=== PATIENT | female | born 2005 | race Caucasian/White ===

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

== ENCOUNTER 2024-12-27 15:54 | Emergency (ER) | payer OTHER, SELFPAY ==
--- NOTE | 2024-12-27 15:56 | ED_ITS ---
HPI - URI/Sore Throat General Chief Complaint: Urogenital-Female Stated Complaint: Sore Throat Time Seen by Provider: 12/27/24 16:28 Source: patient and RN notes reviewed Mode of arrival: ambulatory Limitations: no limitations History of Present Illness HPI Narrative: 19-year-old female presents with multiple complaints. She reports she has had a backache which she can get when she has urinary tract infection. She denies frequency, urgency, nausea, vomiting, body aches, chills, sweats. A separate complaints she reports feeling of her right tonsil being slightly swollen. She denies sore throat, runny nose, stuffy nose, cough. She reports she gets tonsil stones and she is curious if she has a tonsil stone. MD elicited complaint: sore throat Related Data Home Medications ?Medication ?Instructions ?Recorded ?Confirmed ?Last Taken ?Type levonorgestrel-ethinyl estradiol 1 tablet PO DAILY 09/23/20 06/26/21 Unknown History 0.1 mg-20 mcg tablet (Larissia) Allergies Allergy/AdvReac Type Severity Reaction Status Date / Time sulfamethoxazole (From Allergy Unknown Unknown Verified 12/27/24 16:10 Bactrim) trimethoprim (From Bactrim) Allergy Unknown Unknown Verified 12/27/24 16:10 Review of Systems Review of Systems: CONSTITUTIONAL: Denies malaise, chills, sweats, or fever. EYES: Denies visual changes, redness, or discharge. ENT: Denies rhinorrhea, congestion, sinus pain, otalgia and sore throat. Reports swollen right tonsil CARDIOVASCULAR: Denies chest pain, palpitations, or edema. RESPIRATORY: Denies cough. Denies dyspnea. GASTROINTESTINAL: Denies abdominal pain, nausea, vomiting, diarrhea SKIN: Denies rash or itching. MUSCULOSKELETAL: Denies myalgia. Reports low back ache NEUROLOGIC: Denies headache. All systems reviewed & are unremarkable except as noted in HPI and below PMFSH Past Medical History Medical History (Updated 12/27/24 @ 16:38 by Erendira Eng NP) COVID-19 Obese Female reproductive system disorder Cyst removed from fallopian tube Exercise-induced asthma Surgical History Surgical History (Updated 09/23/20 @ 20:20 by QUAN Lindquist) History of salpingectomy LT History of orthopedic surgery Bilateral hips pain Family History Family History (Updated 09/23/20 @ 20:20 by QUAN Lindquist) Father Alive and well Mother Obese Social History Social History (Updated 09/23/20 @ 20:22 by QUAN Lindquist) Smoking status: Never smoker Tobacco type: cigarettes Second hand tobacco smoke exposure: No Alcohol intake: never Substance use: never Living arrangements: with family Occupation/Education: occupation Additional occupation/education comments: and 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 There is no relevant family history pertinent to the presenting complaint Exam Narrative: GENERAL: Well-appearing, well-nourished, and in no acute distress. HEAD: Normocephalic EYES: PERRLA, conjunctivae clear ENT: Nares clear. Mucous membranes moist. TM pearly javier with dull light reflex bilaterally; no tragal tenderness. Oropharynx not erythematous without lesions. Right tonsil Tonsil mildly enlarged without erythema or exudate; tonsil stone visible, left not enlarged and without exudate, no drooling, no hoarseness, no trismus, uvula midline. NECK: Supple. No lymphadenopathy CHEST: Clear to auscultation, breath sounds equal. No wheezing, rhonchi, rales, or stridor. No respiratory distress, speaks in full sentences. HEART: Regular rate and rhythm. No murmur heard. SKIN: Warm, dry, no rash. NEURO: Alert and oriented x3. PSYCH: Normal mood and affect Course Course Emergency Course: Patient is aware of diagnosis, understands and agrees to treatment plan. Anticipatory guidance given. Patient agrees to follow-up as directed and is aware of reasons to seek care at the emergency department. Portions of this record may have been created with voice recognition software Level of Care: Express Care Visit Vital Signs Vital signs: Reviewed. MDM - URI/Sore Throat MDM Narrative Medical decision making narrative: Differential diagnosis considered: Ogden virus, strep pharyngitis, allergic rhinitis, upper respiratory tract infection, sinusitis, rhinosinusitis, nasopharyngitis. viral pharyngitis, otitis media, otitis externa, pneumonia, bronchitis, viral cough syndrome, viral syndrome, and influenza. Exam findings show no acute concerns or changes; patient is non-toxic appearing and is in no distress. Patient is appropriate for outpatient treatment and follow-up. Lab Data Attestation: I reviewed the patient's lab results. Critical Care Time Critical Care Time Critical Care Time: No Discharge Plan Discharge Clinical Impression: Low back ache, Tonsil stone Patient Disposition: Home Condition: Stable Instructions: General Patient Instructions Additional Instructions: We will send a urine culture to the lab; if the culture identifies an organism that requires antibiotic, you will receive a phone call from an urgent care staff member and an appropriate antibiotic will be prescribed. You can try Zyrtec D to see if it helps with the slight swelling in her tonsils. Salt water gargles may also help dislodge tonsil stones -Also recommend: increase water intake. Tylenol/ibuprofen as needed for pain or fever -Follow-up with your primary care provider for urine recheck or seek ER visit if condition worsens with high fever, nausea, vomiting and severe back pain. Patient Language: Belarusian Prescriptions: No Action levonorgestrel-ethinyl estrad [Larissia] 0.1-20 mg-mcg tablet 1 tablet PO DAILY Follow-up/Referrals: UNKNOWN,DOCTOR [Non-Staff] - Time of Disposition: 16:38
--- OUTSIDE RECORDS SUMMARY | 2024-12-27 15:56 | XMS_ITS | Encounter Summary ---
Author Organization [facility] Address [address] [place] [address] Phone Care Team Providers Care Adult School Teacher Name Role Phone Cheryle Clark CHILD DEVELOPMENT ASSOCIATE TEACHER, SOLID WASTE DISPOSAL MANAGER Primary Care Provider Tana Cardenas APRN, SOLID WASTE DISPOSAL MANAGER Primary Care Provid er Emily Greene APRN, OPTHALMIC TECH Unavailable [phone] Reason for Visit * Reason Comments Medication Refill Encounter Details Date Type Department Care Team (Late st Contact Info) Description 01/07/2022 Refill [facility] - Neurology - [place] [address] [place] [address] Emily Greene, JENNIE, OPTHALMIC TECH [address] [place] [address] Medication Refill Social History Tobacco Use Types Packs/Day Years Used Date Smoking Tobacco: Never Smokeless Tobacco: Never Alcohol Use Standard Drinks/Week Comments Never 0 (1 standard drink = 0.6 oz pur e alcohol) AUDIT-C Answer Date Recorded Q1: How often do you have a drink containing alc ohol? 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 Gender Identity Not on file Sexual Orientation Not on file documented as of this encounter Plan of Treatment Not on file documented as of this encounter Visit Diagnoses Diagnosis Chronic migraine w/o aura w/o status migrainosus, not intractable Chronic migraine without aura, without mention of intractable migraine without mention of status migrainosus documented in this encounter Additional Health Concerns Assessment Noted Time PHQ-9 Depression Total Score: 0 09/28/19 21 10:00 AM CDT documented as of this encounter Care Teams Adult School Teacher Relationship Specialty Start Date End Date Cheryle Clark, CHILD DEVELOPMENT ASSOCIATE TEACHER, SOLID WASTE DISPOSAL MANAGER [address] [place] [address] PCP - General Advanced Practice Nurse 03/14/20 Tana Cardenas APRN, SOLID WASTE DISPOSAL MANAGER [address] [address] PCP - General Advanced Practice Nurse 09/22/22 Emily Greene APRN, OPTHALMIC TECH [address] [place] [address] Nurse Practitioner Advanced Practice Nurse 05/14/22 documented as of this encounter
--- OUTSIDE RECORDS SUMMARY | 2024-12-27 15:56 | XMS_ITS | Encounter Summary ---
Author Organization [facility] Address [address] [place] [address] Phone Care Team Providers Care Repair Servicer Name Role Phone Tana Cardenas APRN, TOOL STRAIGHTENER Primary Care Provid er Emily Greene APRN, HI RANGER OPERATOR Unavailable [phone] Reason for Visit * Reason Comments Medication Refill Encounter Details Date Type Department Care Team (Late st Contact Info) Description 11/05/2022 Refill [facility] - Neurology - [place] [address] [place] [address] Emily Greene APRN, HI RANGER OPERATOR [address] [place] [address] Medication Refill Social History Tobacco Use Types [...] Total Score - Questions 1-9 0 09/07 Sexually Active Control Partners Comments Yes Male Condom Male Comments No Sex and Gender Information Value Date Recorded Sex Assigned at Not on file Legal 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 Requested Prescriptions Pending Prescriptions Disp Refills Aimovig 140 MG/ML Solution Auto-injector [Pharmacy Med Name: AIMOVIG SURECLICK 140MG/ML INJ ROBINSON] 1 mL 3 Sig: INJECT 1 MG UNDER SKIN EVERY MONTH Not Delegated - Off Protocol Failed - 11/05/2022 2:55 PM Failed - This refill cannot be delegated Passed - Visit with relevant provider in past 12 months or upcoming 90 days Recent Visits Date Type Provider Dept 09/22/22 Office Visit Tana Cardenas APRN, [facility] 05/14/22 Office Visit Emily Greene APRN, CRISTIN [facility] Neurology [facility] Showing recent visits within past 365 days and meeting all other requirements Future Appointments No visits were found meeting these conditions. Showing future appointments within next 90 days and meeting all other requirements documented in this encounter Plan of Treatment Not on file documented as of this encounter Visit Diagnoses Not on filedocumented in this encounter Additional Health Concerns Assessment Noted Time PHQ-9 Depression Total Score: 0 09/28/19 21 10:00 AM CDT documented as of this encounter Care Teams Repair Servicer Relationship Specialty Start Date End Date Tana Cardenas APRN, TOOL STRAIGHTENER [address] [id number] PCP - General Advanced Practice Nurse 09/22/22 Emily Greene APRN, HI RANGER OPERATOR [address] [place] [address] Nurse Practitioner Advanced Practice Nurse 05/14/22 documented as of this encounter
--- OUTSIDE RECORDS SUMMARY | 2024-12-27 15:56 | XMS_ITS | Encounter Summary ---
Author Organization [facility] Address [address] [place] [address] Phone Care Team Providers Care Supervisor Grain And Yeast Plants Name Role Phone Cheryle Clark MARKET MANAGER, FINAL CIGAR AND BOX EXAMINER Primary Care Provider Tana Cardenas APRN, FINAL CIGAR AND BOX EXAMINER Primary Care Provid er Emily Greene APRN, ANIMAL PHYSIOLOGY TEACHER Unavailable [phone]- [phone] Reason for Visit * Reason Comments Medication Refill Encounter Details Date Type Department Care Team (Late st Contact Info) Description 07/09/2022 Refill [facility] - Neurology - [place] [address] [place] [address] Emily Greene, JENNIE, ANIMAL PHYSIOLOGY TEACHER [address] [place] [address] Medication Refill Social History Tobacco Use Types [...] on file Legal Sex Female 4:52 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 Gender Identity Not on file Sexual Orientation Not on file documented as of this encounter Plan of Treatment Not on file documented as of this encounter Visit Diagnoses Not on filedocumented in this encounter Additional Health Concerns Assessment Noted Time PHQ-9 Depression Total Score: 0 09/28/19 21 10:00 AM CDT documented as of this encounter Care Teams Supervisor Grain And Yeast Plants Relationship Specialty Start Date End Date Cheryle Clark APRN, FINAL CIGAR AND BOX EXAMINER [address] [place] [address] PCP - General Advanced Practice Nurse 03/14/20 Tana Cardenas, JENNIE, FINAL CIGAR AND BOX EXAMINER [address] [phone] PCP - General Advanced Practice Nurse 09/22/22 Emily Greene APRN, ANIMAL PHYSIOLOGY TEACHER [address] [place] [address] Nurse Practitioner Advanced Practice Nurse 05/14/22 documented as of this encounter
--- OUTSIDE RECORDS SUMMARY | 2024-12-27 15:56 | XMS_ITS | Referral Summary ---
Author Organization [facility] Address [address] [place] [address] Care Team Providers Care Python Developer Name Role Phone Elana Schafer MD Primary Care Provid er Allergies No known active allergies Medications albuterol HFA (PROVENTIL HFA,VENTOLIN HFA) 90 mcg/actuation inhaler inhale 2 by Inhalation route every 3 - 6 hours prn 1 Inhaler 0 3 Active Additional Information Patient not taking.Reported on 12/21/2017 omeprazole (PriLOSEC) 20 mg capsuleIndicatio ns:Treatment of Non-Bleeding Gastric Disorder Take 1 capsule (20 mg total) by mouth 2 (two) times a day. 60 capsule 1 9 Active Additional Information Patient not taking.Reported on 04/19/2019 fluticasone propionate (FLONASE) 50 mcg/actuation nasal spray INSTILL 1 SPRAY NASALLY EACH DAY 0 9 Active methylPREDNISolo ne (MEDROL DOSEPACK) 4 mg Dosepack TAKE 6 TABLETS ON DAY 1 DIRECTED ON PACKAGE AND DECREASE BY 1 TAB EACH DAY FOR A TOTAL OF 6 DAYS 0 9 Active cephalexin (KEFLEX) 500 mg capsule Take po bid 60 capsule 9 Active Additional Information Patient not taking.Reported on 04/19/2019 clindamycin (CLEOCIN T) 1 % lotion Apply topically to face, chest, back qd 120 mL 3 9 Active Additional Information Patient not taking.Reported on 04/19/2019 ISOtretinoin (ABSORCA) 40 mg capsule Take 1 capsule (40 mg total) by mouth daily 30 capsule 9 Active almotriptan (AXERT) 6.25 mg tablet 9 Active ISOtretinoin (Claravis) 30 mg capsuleIndicatio ns:History of isotretinoin therapy,Acne vulgaris Take 2 tablets (60 mg) po every day 60 capsule 0 Active Active Problems Problem Noted Date Diagnosed Date Acne 04/18/2014 Pelvic mass 08/11/2013 Arthralgia of hip 03/03/2013 Pain in extremity 11/24/2011 Slipped proximal femoral epiphysis of hip 2011 Ventricular septal defect 04/06/2009 Immunizations Immunization Administration Dates Next Due DTaP 5 Pertussis 01/13/2008, 4,2003,2003, 2003 Hep B / HiB 2003 Hep B, Adolescent or Pediatric 2003,2002 Hib (HbOC) 04/26/2004,2003,2003 IPV 01/13/2008,04/26/2004,2003 ,2003 MMR 01/13/2008,01/26/2004 Pneumococcal Conjugate 7-Valent 04/26/2004,07/26,2003,2003 Tdap 03/22/2013 Varicella 01/13/2008,01/26/2004 Social History Tobacco Use Types Packs/Day Years Used Date Smoking Tobacco: Never Smokeless Tobacco: Never Comments Unknown Sex and Gender Information Value Date Recorded Sex Assigned at Not on file Legal Sex Female 11:48 PM C 13 CATAPULT OPERATOR Gender Identity Not on file Sexual Orientation Not on file Last Filed Vital Signs Vital Sign Reading Time Taken Comments Blood Pressure 135/84 06/02/2018 1:40 PM C 13 CATAPULT OPERATOR Pulse 119 06/02/2018 1:40 PM C 13 CATAPULT OPERATOR Temperature 36.5 C (97.7 F) 06/02/2018 1:40 PM C 13 CATAPULT OPERATOR Respiratory Rate 20 06/02/2018 1:40 PM C 13 CATAPULT OPERATOR Oxygen Saturation 97% 06/02/2018 1:40 PM C 13 CATAPULT OPERATOR Inhaled Oxygen Concentration - - Weight 123 kg (271 lb 2.7 oz) 06/02/2018 1:40 PM C 13 CATAPULT OPERATOR Height 169.6 cm (5' 6.77) 12/21/2017 3:06 PM CD T Body Mass Index - - Plan of Treatment Not on file Insurance [employer] Address: [facility] [id number] [place] [address] [employer] [place] [facility] CHOICE PLUS [facility] HMO/PPO Address: [address] [address] [place] [address] [place] [facility] CHOICE PLUS [facility] HMO/PPO Address: [address] [address] [place] [address] Care Teams Python Developer Relationship Specialty Start Date End Date Elana Schafer MD [address] [address] PCP - General Pediatrics 04/05/19
--- OUTSIDE RECORDS SUMMARY | 2024-12-27 15:56 | XMS_ITS | Clinical Summary ---
Author Organization [facility] Address [address] [place] [address] Phone Care Team Providers Care Coil Builder Name Role Phone Tana Cardenas APRN, WIRE STRIPPING 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 Primary Care Provid er Emily Greene APRN, PURIFICATION SUPERVISOR Unavailable [phone]- [phone] Allergies No known active allergies Medications Syringe/Needle, Disp, (SYRINGE 3CC/25GX1) 25G X 1 3 ML Misc 1 Syringe by Does not apply route once a week. 4 Each 1 Active famotidine (PEPCID) 20 MG Tablet Take 20 mg by mouth 2 times daily. Active Cyanocobalamin (B-12) 1000 MCG Capsule Take 1 Capsule by mouth Every other day. 60 Capsule 2 2 Active Larissia 0.1-20 MG-MCG TabletIndication s:Heavy Menstrual Bleeding Take 1 Tablet by mouth daily. Indications: Excessive Amount of Menstrual Volume 28 Tablet 3 3 Active Rizatriptan Benzoate 5 MG TABLET DISPERSIBLE Take 1 Tablet by mouth once as needed for Migraine. 9 Tablet 3 3 Active Aimovig 140 MG/ML Solution Auto-injector INJECT 1 MG UNDER SKIN EVERY MONTH 1 mL 3 3 Active ondansetron (ZOFRAN-ODT) 4 MG TABLET DISPERSIBLEIndic ations:Chronic migraine w/o aura w/o status migrainosus, not intractable Take 1 Tablet by mouth every 8 hours as needed for Nausea - 1st line. 15 Tablet 2 3 Active Active Problems Problem Noted Date Diagnosed Date Menorrhagia with irregular cycle 09/22/2022 Acne 04/18/2014 Arthralgia of hip 03/03/2013 Slipped proximal femoral epiphysis of hip 2011 Ventricular septal defect 04/06/2009 Immunizations Immunization Administration Dates Next Due Covid-19, Mrna, Lnp-s, Pf, 3 0 Mcg/0.3 Ml Dose ([facility]) 02/08/2021 DTAP VACCINE 01/13/2008 DTAP VACCINE, UNSPECIFIED FORMULATION 2003 DTAP/HEPB/IPV Vaccine 2003 DTAP/HIB/IPV COMBINED VACCINE 04/26/2004, 003,2003 Hepatitis A Vaccine, Pediatric/adolescent, 2 Dose Schedule 12/22/2016,12/17/2015 Hepatitis B Vaccine, Pediatric/adolescent 2003,2003 Hepatitis B Vaccine,unspecif ied Formulation 2003 Hib (HbOC) 04/26/2004,2003,2003 Hib Vaccine,unspecified Formulation 2003 Inactivated Polio Vaccine 01/13/2008 Influenza, Injectable, Quadrivalent 04/23/2015 MMR Vaccine 01/13/2008,01/26/2004 Meningococcal MCV4O 12/17/2015 Meningococcal Vaccine 02/15/2020 Pneumococcal PCV, Unspecifie d Formulation 2003 Pneumococcal Vaccine - 13 Valent 004,2003,2003,03/27 TDAP Vaccine 03/22/2013 Varicella Vaccine Live 01/13/2008,01/26/2004 Family History Medical History Relation Name Comments Hypertension Maternal Grandmother Other-comment Maternal Grandmother Dermat omyositis Migraines Mother Relation Name Status Comments Father Maternal Grandmother Mother Alive Social History Tobacco Use Types Packs/Day Years Used Date Smoking Tobacco: Never Smokeless Tobacco: Never Tobacco Cessation:Counseling Given: Yes Alcohol Use Standard Drinks/Week Comments Never 0 [...] on file Legal Sex Female 4:52 PM QUALITY CONTROL 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 Gender Identity Not on file Sexual Orientation Not on file Last Filed Vital Signs Vital Sign Reading Time Taken Comments Blood Pressure 124/76 09/22/2022 8:35 AM CDT Pulse 71 09/22/2022 8:35 AM CDT Temperature 36.9 C (98.5 F) 09/22/2022 8:35 AM CDT Respiratory Rate 14 09/22/2022 8:35 AM CDT Oxygen Saturation 98% 09/22/2022 8:35 AM CDT Inhaled Oxygen Concentration - - Weight 118.8 kg (261 lb 14.4 oz) 09/22/2022 8:35 AM CDT Height 170.2 cm (5' 7) 09/22/2022 8:35 AM CDT Body Mass Index 41.02 09/22/2022 8:35 AM CDT Plan of Treatment Health Maintenance Due Date Last Done Comments Hepatitis C Virus (HCV) Screening 2003 Human Papillomavirus (HPV) Immunization (1 - 3-dose series) 2018 Meningococcal B Immunization (1 of 2 - Standard) 2019 DTaP/Tdap/Td Immunization (7 - Td or Tdap) 03/22/2023 03/22/2013, 01/13/2008, 04/26/2004, Additional history exists Pap Smear 01/24/2024 SARS-COV-2 Immunization ( - season) 2024 03/01/2021, 02/08/2021 Influenza Immunization (#1) 2025 04/23/2015 Respiratory Syncytial Virus (RSV) Immunization (Adult) (1 - 1-dose 75+ series) 2078 Hepatitis B Immunization Completed 004, 2003, 2003, Additional history exists Pneumococcal Immunization Combined Completed 04/26/2004, 2003, 2003, Additional history exists Measles Mumps Rubella (MMR) Immunization Discontinued 01/13/2008, 01/26/2004 Polio (IPV) Immunization Discontinued 008, 04/26/2004, 2003, Additional history exists Varicella Immunization Discontinued 01/13/2008, 2003 Hepatitis A Immunization Discontinued 12/22/2016, 12/06 Meningococcal Immunization (ACWY) Completed 02/15/2020, 12/17/2015 Rotavirus Immunization Aged Out No lo nger eligible based on patient's age to complete this topic Insurance [facility] [employer] Care Teams Coil Builder Relationship Specialty Start Date End Date Tana Cardenas APRN, WIRE STRIPPING 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 [address] [phone] PCP - General Advanced Practice Nurse 09/22/22 Emily Greene, REHAB TECHNICIAN, PURIFICATION SUPERVISOR [address] [place] [address] Nurse Practitioner Advanced Practice Nurse 05/14/22
--- OUTSIDE RECORDS SUMMARY | 2024-12-27 15:56 | XMS_ITS | Clinical Summary ---
Author Organization [facility] Address [address] [place] [address] Care Team Providers Care Meat Processor Name Role Phone Unavailable Primary Care Provider Unavailabl e Source Comments [facility],non-owned Affiliates and Associated Physician Practices is amultiple site organization consisting of ambulatory clinics and hospital sitesin [place], [place], [place] and [place]. This disclosure is being madepursuant to the Care Everywhere program and may not contain all information available regarding this patient. Last updated 18.[facility] [place] Allergies No known active allergies Medications * Be aware that medications may not be up to date on this document. Alwaysverify current medications with the patient. almotriptan (AXERT) 6.25 MG tablet TAKE 1 TAB BY MOUTH ONCE A DAY MAY REPEAT IN 2 HOURS IF HEADACHE PERSISTING, NO MORE THEN 2 A DAY 9 Active amitriptyline (ELAVIL) 10 MG tablet TAKE 1 TABLET BY MOUTH EVERYDAY AT BEDTIME 0 Active fluticasone propionate (FLONASE) 50 MCG/ACT nasal spray Raymond 1-2 sprays into the nose once daily 0 Active AIMOVIG 140 MG/ML auto injector pen INJECT 1ML SUBCUTANEOUSLY EVERY 28 DAYS 2 Active ondansetron, disintegrating , (Zofran ODT) 4 MG tablet Take 1 (one) tablet by mouth every 8 hours as needed 3 Active Cyanocobalamin 1000 MCG Take 1 capsule by mouth 2 Active rizatriptan, disintegrating , (Maxalt SENIOR MARKETING ANALYST) 5 MG tablet Take 1 (one) tablet by mouth once as needed Active levonorgestrel -ethinyl estradiol 0.1-20 MG-MCG tabletIndicati ons:Abnormal Uterine Bleeding,Contr aceptive Therapy Take 1 (one) tablet by mouth once daily Reasons: Control Treatment, Symptomatic Variation from Normal Periods 3 packet 4 Active Social History Tobacco Use Types Packs/Day Years Used Date Smoking Tobacco: Never Assessed PHQ-2 Answer Date Recorded PHQ2 TOTAL SCORE 0 09/01/2022 Comments Unknown Sex and Gender Information Value Date Recorded Sex Assigned at Not on file Legal Sex Female 2:43 PM RAW SAMPLER Gender Identity Not on file Sexual Orientation Not on file Last Filed Vital Signs Vital Sign Reading Time Taken Comments Blood Pressure 110/74 10/06/2022 2:50 PM CDT Pulse - - Temperature - - Respiratory Rate 18 10/06/2022 2:50 PM CDT Oxygen Saturation - - Inhaled Oxygen Concentration - - Weight 118.2 kg (260 lb 9.6 oz) 10/06/2022 2:50 PM CDT Height 167.6 cm (5' 6) 10/06/2022 2:50 PM CDT Body Mass Index 42.06 10/06/2022 2:50 PM CDT Plan of Treatment Health Maintenance Due Date Last Done Comments HIV SCREENING 2018 HPV VACCINE (1 - 3-dose series) 2018 MENINGOCOCCAL (Group B) VACCINE SHARED DECISION-MAKING (1 of 2 - Standard) 2019 HEPATITIS C SCREENING 01/18/2021 DTAP/TDAP/TD VACCINES (1 - Tdap) 2022 HEPATITIS B VACCINE (1 of 3 - 19+ 3-dose series) 2022 CHLAMYDIA/GONORRHEA SCREENING 10/07/2023, 08/27/2021 PAP SMEAR 01/24/2024 COVID-19 VACCINE (3 - 2023-2 5 season) 2024 03/01/2021, 02/08/2021 DEPRESSION SCREENING 06/08/2024 10/06/2022, 08/27/2021 INFLUENZA VACCINE (#1) 2025 04/23/2015 ZOSTER VACCINE (1 of 2) 2053 HIB VACCINE Aged Out No longer eligi ble based on patient's age to complete this topic MENINGOCOCCAL GROUPS A/C/Y/W VACCINE Aged Out No longer eligible b ased on patient's age to complete this topic PNEUMOCOCCAL VACCINE Aged Out No long er eligible based on patient's age to complete this topic Procedures Procedure Name Priority Date/Time Associated Diagnosis Comments CHLAMYDIA + GC + TRICH DNA AMPL Routine 10/06/2022 3:43 PM CDT Well woman exam Left ovarian cyst Potential exposure to STD Screen for STD (sexually transmitted disease) from Last 3 Months or Most Recently Relevant to Health Maintenance Results * CHLAMYDIA + GC + TRICH DNA AMPL (10/06/2022 3:43 PM CDT) Chlamydia trachomatis JUDITH Negative Negative [facility] ACCOUNT BILL GC DNA Probe Negative Negative [facility] ACCOUNT [facility]ILL Trichomonas vaginalis by JUDITH Negative Negative [facility] ACCOUNT BILL Microbiology ENTIRE ENDOCERVIX / Unknown 10/06/2022 3:43 PM CDT 10/06/2022 Narrative Resulting Agency Comment Lab Testing performed at: [facility] [id number] Ani Alvarez [facility] - MICROBIOLOGY ORDERA BLES Final Result [facility] ACCOUNT BILL [address] [place] [address] from Last 3 Months or Most Recently Relevant to Health Maintenance Insurance [employer] ANTHEM
--- OUTSIDE RECORDS SUMMARY | 2024-12-27 15:56 | XMS_ITS | Encounter Summary ---
Author Organization [facility] Address [address] [place] [address] Phone Care Team Providers Care Hydraulic Pile Hammer Operator Name Role Phone Cheryle Clark TRACK ANNOUNCER, DOOR FRAMER Primary Care Provider Tana Cardenas APRN, DOOR FRAMER Primary Care Provid er Emily Greene APRN, CHILDREN'S MINISTER Unavailable [phone]- [phone] Reason for Visit * Reason Comments Medication Refill Encounter Details Date Type Department Care Team (Late st Contact Info) Description 03/21/2021 Refill [facility] - Neurology - [place] [address] [place] [address] Emily Greene, JENNIE, CHILDREN'S MINISTER [address] [place] [address] Medication Refill Social History Tobacco Use Types [...] on file Legal Sex 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 No / Unsure 02/19/2021 8:28 AM CDT documented as of this encounter Plan of [...] documented as of this encounter Care Teams Hydraulic Pile Hammer Operator Relationship Specialty Start Date End Date Cheryle Clark, TRACK ANNOUNCER, DOOR FRAMER [address] [place] [address] PCP - General Advanced Practice Nurse 03/14/20 Tana Cardenas APRN, DOOR FRAMER #[address] [address] PCP - General Advanced Practice Nurse 09/22/22 Emily Greene APRN, CHILDREN'S MINISTER [address] [place] [address] Nurse Practitioner Advanced Practice Nurse 05/14/22 documented as of this encounter
--- OUTSIDE RECORDS SUMMARY | 2024-12-27 15:56 | XMS_ITS | Encounter Summary ---
Author Organization [facility] Address [address] [place] [address] Phone Care Team Providers Care Sugar Trucker Name Role Phone Cheryle Clark OVERNIGHT CAREGIVER, DIVIDEND CLERK Primary Care Provider Tana Cardenas APRN, DIVIDEND CLERK Primary Care Provid er Emily Greene APRN, DECKHAND Unavailable [phone]- [phone] Reason for Visit * Reason Comments Medication Refill Encounter Details Date Type Department Care Team (Late st Contact Info) Description 07/09/2022 Refill [facility] - Neurology - [place] [address] [place] [address] Emily Greene, JENNIE, DECKHAND [address] [place] [address] Medication Refill Social History Tobacco Use Types [...] on file Legal Sex Female 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 Gender Identity Not on file Sexual Orientation Not on file documented as of this encounter Plan of Treatment Not on file documented as of this encounter Visit Diagnoses Not on filedocumented in this encounter Additional Health Concerns Assessment Noted Time PHQ-9 Depression Total Score: 0 09/28/19 21 10:00 AM CDT documented as of this encounter Care Teams Sugar Trucker Relationship Specialty Start Date End Date Cheryle Clark APRN, DIVIDEND CLERK [address] [place] [address] PCP - General Advanced Practice Nurse 03/14/20 Tana Cardenas, JENNIE, DIVIDEND CLERK [address] [phone] PCP - General Advanced Practice Nurse 09/22/22 Emily Greene APRN, DECKHAND [address] [place] [address] Nurse Practitioner Advanced Practice Nurse 05/14/22 documented as of this encounter
--- OUTSIDE RECORDS SUMMARY | 2024-12-27 15:56 | XMS_ITS | Clinical Summary ---
Author Organization [facility] Address [address] [place] [address] Care Team Providers Care Plugman Name Role Phone Elana Schafer MD Primary [...] Conjugate 7-Valent 04/26/2004,07/26,2003,2003 Tdap 03/22/2013 Varicella 01/13/2008,01/26/2004 Surgical History Surgery Date Site/Laterality Comments OVARY SURGERY Ovarian Surgery - (Added by TW Conv) HIP SURGERY Hip Surgery - (Added by TW Conv) Medical History Medical History Date Comments Personal history of other di seases of the respiratory system Personal history of asthma - (Added by TW Conv) Slipped capital femoral epiphysis Ovarian torsion Heart murmur Family History Medical History Relation Name Comments No Known Problems Father No Known Problems Mother Diabetes type II Other 1 Family hist ory of type 2 diabetes mellitus - Relation: Grandparent (Added by TW Conv) Colon cancer Other 2 Family history of malignant neoplasm of colon - Relation: Grandparent (Added by TW Conv) Relation Name Status Comments Father Alive Mother Alive Other 1 Other 2 Social History Tobacco Use Types Packs/Day Years Used Date Smoking Tobacco: Never Smokeless Tobacco: Never Comments Unknown Sex and Gender Information Value Date Recorded Sex Assigned at Not on file Legal Sex Female 11:48 PM SERVICE STATION EQUIPMENT MECHANIC Gender Identity Not on file Sexual Orientation Not on file Obstetrics History Last Filed Vital Signs Vital Sign Reading Time Taken Comments Blood Pressure 135/84 06/02/2018 1:40 PM SERVICE STATION EQUIPMENT MECHANIC Pulse 119 06/02/2018 1:40 PM SERVICE STATION EQUIPMENT MECHANIC Temperature 36.5 C (97.7 F) 06/02/2018 1:40 PM SERVICE STATION EQUIPMENT MECHANIC Respiratory Rate 20 06/02/2018 1:40 PM SERVICE STATION EQUIPMENT MECHANIC Oxygen Saturation 97% 06/02/2018 1:40 PM SERVICE STATION EQUIPMENT MECHANIC Inhaled Oxygen Concentration - - Weight 123 kg (271 lb 2.7 oz) 06/02/2018 1:40 PM SERVICE STATION EQUIPMENT MECHANIC Height 169.6 cm (5' 6.77) 12/21/2017 3:06 PM CD T Body Mass Index - - Plan of Treatment Health Maintenance Due Date Last Done Comments Cervical Cancer Screening 2003 Depression Screening 2003 Hepatitis C Screening 2003 HPV Vaccines (1 - 3-dose series) 2018 Meningococcal B Vaccine (1 o f 2 - Standard) 2019 Regular Well Visit/Exam 18-64 2021 DTaP/Tdap/Td Vaccine (7 - Td or Tdap) 03/22/2023 03/22/2013, 01/13/2008, 04/26/2004, Additional history exists Covid-19 Vaccine (3 - 2023-2 5 season) 2024 03/01/2021, 02/08/2021 Influenza Vaccine (Season Ended) 2025 04/08/20 23, 04/23/2015 Hepatitis B Screening Completed 2003 , 2003, 2003, Additional history exists Pneumococcal vaccine <65 Completed 004, 2003, 2003, Additional history exists Varicella Vaccines Completed 01/13/2008, 01/26/2004 Meningococcal Vaccine Completed 02/15/2020, 016 Insurance [employer] [facility] [employer] Address: [address] [place] [address] [facility] CHOICE PLUS [facility] Member Subscriber Plan / Payer (Ef fective 2013-Present) Name:Gina Gasca Relation to Subscriber:Other Relationship Name:DEJA JACKMAN Subscriber ID:Not on file Date of :1991 Payer ID:[id number] (NAIC) Group ID:[id number] Type:BC OTHER Address: [id number] [place] [id number] ANTHEM ACCESS CHOICE [place] Member Subscriber Plan / Payer (Ef fective 2018-Present) Name:Gina Gasca Relation to Subscriber:Other Relationship Name:LAURYN GASCA Subscriber ID:Not on file Date of :1975 (Home) Address: [address] [place] [address] Payer ID:[id number] (NAIC) Type:BC OTHER Address: [facility] [id number] [place] [phone] [place] [facility] CHOICE PLUS Care Teams Plugman Relationship Specialty Start Date End Date Elana Schafer MD [address] [address] PCP - General Pediatrics 04/05/19
[2024-12-27 16:03] VITALS: BP 178/93; PULSE 119; RESP 16; TEMP 37.4; O2SAT 99
[2024-12-27 16:24] LABS: EDUAAPPEAR Cloudy; EDUABILI Negative (Negative); EDUABLOOD 1+ (Negative); EDUACOLOR1 Yellow; EDUAGLUCOSE Negative (Negative); EDUAKETONE Negative (Negative); EDUALEUKO 1+ (Negative); EDUANITRATE Negative (Negative); EDUAPH 6.5; EDUAPROTEIN 1+ (Negative); EDUASPGRAVITY 1.025; EDUAUROBILI 0.2
== END 2024-12-27 16:40 | disposition home or self-care (01) ==
PROVIDERS: Emergency Provider Nurse Practitioner
DX: M54.50 Low back pain, unspecified (principal); J35.8 Other chronic diseases of tonsils and adenoids; J45.990 Exercise induced bronchospasm; E66.9 Obesity, unspecified; Z86.16 Personal history of COVID-19
CPT/HCPCS: 81003; 87086; 99212; G0463

== ENCOUNTER 2025-03-31 13:57 | Emergency (ER) | payer OTHER, SELFPAY ==
--- OUTSIDE RECORDS SUMMARY | 2025-03-31 14:01 | XMS_ITS | Encounter Summary ---
Author Organization [facility] Address [address] [place] [address] Phone Care Team Providers Care Mold Laminator Name Role Phone Tana Cardenas APRN, ELECTRIC ORGAN INSPECTOR AND REPAIRER Primary Care Prov ider Emily Greene APRN, PROBATE PARALEGAL Unavailable [phone]- [phone] Reason for Visit * Reason Comments Medication Refill Encounter Details Date Type Department Care Team (Late st Contact Info) Description 11/05/2022 Refill [facility] - Neurology - [place] [address] [place] [address] Emily Greene, HIGHWAY ADMINISTRATIVE ENGINEER, PROBATE PARALEGAL [address] [place] [address] Medication Refill Social History Tobacco Use Types [...] on file Legal Sex Female 4:52 PM RECORD CUTTER Gender Identity Not on file Sexual Orientation [...] 09/22/22 [facility] Visit [facility] Office Visit Emily Greene APRN, CRISTIN [facility] Neu[facility] Showing recent visits within past [...] documented as of this encounter Care Teams Mold Laminator Relationship Specialty Start Date End Date Tana Cardenas APRN, ELECTRIC ORGAN INSPECTOR AND REPAIRER #[address] [phone] PCP - General Advanced Practice Nurse 09/22/22 Emily Greene APRN, PROBATE PARALEGAL [address] [place] [address] Nurse Practitioner Advanced Practice Nurse 05/14/22 documented as of this encounter
--- OUTSIDE RECORDS SUMMARY | 2025-03-31 14:01 | XMS_ITS | Encounter Summary ---
Author Organization [facility] Address [address] [place] [address] Phone Care Team Providers Care Clinical Support Manager Name Role Phone Cheryle Clark APRN, FIREPROOF DOOR ASSEMBLER Primary Care Provider Tana Cardenas APRN, FIREPROOF DOOR ASSEMBLER Primary Care Prov ider Emily Greene APRN, MONTESSORI TEACHER Unavailable [phone]- [phone] Reason for Visit * Reason Comments Medication Refill Encounter Details Date Type Department Care Team (Late st Contact Info) Description 03/21/2021 Refill [facility] - Neurology - [place] [address] [place] [address] Emily Greene APRN, MONTESSORI TEACHER [address] [place] [address] Medication Refill Social History Tobacco Use Types [...] on file Legal Sex Female 4:52 PM LOKIE DRIVER Gender Identity Not on file Sexual Orientation [...] documented as of this encounter Care Teams Clinical Support Manager Relationship Specialty Start Date End Date Cheryle Clark, FULL TIME, FIREPROOF DOOR ASSEMBLER [address] [place] [address] PCP - General Advanced Practice Nurse 03/14/20 Tana Carednas APRN, FIREPROOF DOOR ASSEMBLER [address] [address] PCP - General Advanced Practice Nurse 09/22/22 Emily Greene APRN, MONTESSORI TEACHER [address] [place] [address] Nurse Practitioner Advanced Practice Nurse 05/14/22 documented as of this encounter
--- OUTSIDE RECORDS SUMMARY | 2025-03-31 14:01 | XMS_ITS | Clinical Summary ---
Author Organization [facility] Address [address] [place] [address] Care Team Providers Care Regulatory Scientist Name Role Phone Unavailable Primary Care Provider Unavailabl e Source Comments [facility],non-owned Affiliates and Associated Physician Practices is amultiple site organization consisting of ambulatory clinics and hospital sitesin [place], [place], [place] and [place]. This disclosure is being madepursuant to the Care Everywhere program and may not contain all information available regarding this patient. 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 Gender Identity Not on file Sexual Orientation [...] CHLAMYDIA/GONORRHEA SCREENING 10/07/2023, 08/27/2021 PAP SMEAR 01/24/2024 DEPRESSION SCREENING 06/08/2024 10/06/2022, 08/27/2021 COVID-19 VACCINE (3 - 2024-2 6 season) 2025 03/01/2021, 02/08/2021 INFLUENZA VACCINE (#1) 2025 04/23/2015 ZOSTER VACCINE [...] Resulting Agency Comment Lab Testing performed at: [facility] [id number] Ani Alvarez EPOXY COATINGS INSTALLER-MANAGER INTENSIVE CARE LAB - MICROBIOLOGY ORDERA BLES Final Result [facility] ACCOUNT BILL [id number] [place] [address] from Last 3 Months or Most Recently Relevant to Health Maintenance Insurance [employer] ANTHE[employer]
--- OUTSIDE RECORDS SUMMARY | 2025-03-31 14:01 | XMS_ITS | Clinical Summary ---
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 Respiratory Rate 20 06/02/2018 1: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 Oxygen Saturation 97% 06/02/2018 1: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 Inhaled Oxygen Concentration - - Weight 123 kg (271 lb 2.7 oz) 06/02/2018 1: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 Height 169.6 cm (5' 6.77) 12/21/2017 [...] Additional history exists Covid-19 Vaccine (3 - 2024-2 6 season) 2025 03/01/2021, 02/08/2021 Influenza Vaccine (#1) 2025 04/08/2023, 2014 Hepatitis B Screening Completed 2003 , 2003, 2003, Additional history exists Pneumococcal vaccine <65 Completed 004, 2003, 2003, Additional history exists Varicella Vaccines Completed 01/13/2008, 01/26/2004 Insurance [employer] [facility] [employer] Address: [facility] [id number] [place] [address] [facility] [place]ICE [place] [facility] CHOICE PLUS Care Teams Lead Pharmacy Technician Relationship Specialty Start Date End Date Elana Schafer MD [address] [place] [address] PCP - General Pediatrics 04/05/19
--- OUTSIDE RECORDS SUMMARY | 2025-03-31 14:01 | XMS_ITS | Encounter Summary ---
Author Organization [facility] Address [address] [place] [address] Phone Care Team Providers Care Cloth Handler Name Role Phone Cheryle Clark APRN, APPAREL PATTERN MAKER Primary Care Provider Tana Cardenas APRN, APPAREL PATTERN MAKER Primary Care Prov ider Emily Greene APRN, BARLEY STEEPER Unavailable [phone]- [phone] Reason for Visit * Reason Comments Medication Refill Encounter Details Date Type Department Care Team (Late st Contact Info) Description 01/07/2022 [facility] - [place] [address] [place] [address] Emily Greene APRN, BARLEY STEEPER [address] [place] [address] Medication Refill Social History Tobacco Use Types [...] on file 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
--- OUTSIDE RECORDS SUMMARY | 2025-03-31 14:01 | XMS_ITS | Clinical Summary ---
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 Gender Identity Not on file Sexual [...] 04/26/2004, Additional history exists Pap Smear 01/24/2024 Influenza Immunization (#1) 2025 04/23/2015 SARS-COV-2 Immunization (3 - season) 2025 03/01/2021, 02/08/2021 Respiratory Syncytial Virus (RSV) Immunization (Adult) (1 [...] patient's age to complete this topic Insurance [facility] [employer] EMPLOYEE Care Teams Architectural Wood Model Maker Relationship Specialty Start Date End Date Tana Cardenas APRN, BRANCH OPERATION EVALUATION MANAGER #[address] [phone] PCP - General Advanced Practice Nurse 09/22/22 Emily Greene APRN, CUSTOMER PROFESSIONAL [address] [place] [address] Nurse Practitioner Advanced Practice Nurse 05/14/22
--- OUTSIDE RECORDS SUMMARY | 2025-03-31 14:01 | XMS_ITS | Encounter Summary ---
Author Organization [facility] Address [address] [place] [address] Phone Care Team Providers Care Fire Hose Curer Name Role Phone Cheryle Clark APRN, LOCATION MAN Primary Care Provider Tana Cardenas APRN, LOCATION MAN Primary Care Prov ider Emily Greene APRN, MANUFACTURING TEST TECHNICIAN Unavailable [phone]- [phone] Reason for Visit * Reason Comments Medication Refill Encounter Details Date Type Department Care Team (Late st Contact Info) Description 07/09/2022 [facility] - [place] [address] [place] [address] Emily Greene APRN, MANUFACTURING TEST TECHNICIAN [address] [place] [address] Medication Refill Social History Tobacco Use Types [...] on file 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 Gender Identity Not on file Sexual Orientation Not on file documented as of this encounter Plan of Treatment Not on file documented as of this encounter Visit Diagnoses Not on filedocumented in this encounter Additional Health Concerns Assessment Noted Time PHQ-9 Depression Total Score: 0 09/28/19 21 10:00 AM CDT documented as of this encounter Care Teams Fire Hose Curer Relationship Specialty Start Date End Date Cheryle Clark APRN, LOCATION MAN [address] [place] [address] PCP - General Advanced Practice Nurse 03/14/20 Tana Cardenas APRN, LOCATION MAN [address] [phone] PCP - General Advanced Practice Nurse 09/22/22 Emily Greene APRN, MANUFACTURING TEST TECHNICIAN [address] [place] [address] Nurse Practitioner Advanced Practice Nurse 05/14/22 documented as of this encounter
--- OUTSIDE RECORDS SUMMARY | 2025-03-31 14:01 | XMS_ITS | Encounter Summary ---
Author Organization [facility] Address [address] [place] [address] Phone Care Team Providers Care Eyeglass Fitter Name Role Phone Cheryle Clark APRN, RATING SPECIALIST Primary Care Provider Tana Cardenas APRN, RATING SPECIALIST Primary Care Prov ider Emily Greene APRN, MEDICAL SURGERY NURSE Unavailable [phone]- [phone] Reason for Visit * Reason Comments Medication Refill Encounter Details Date Type Department Care Team (Late st Contact Info) Description [facility] [place] [address] [place] [address] Emily Greene APRN, MEDICAL SURGERY NURSE [address] [place] [address] Medication Refill Social History Tobacco Use Types [...] on file 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 Gender Identity Not on file Sexual Orientation Not on file documented as of this encounter Plan of Treatment Not on file documented as of this encounter Visit Diagnoses Not on filedocumented in this encounter Additional Health Concerns Assessment Noted Time PHQ-9 Depression Total Score: 0 09/28/19 21 10:00 AM CDT documented as of this encounter Care Teams Eyeglass Fitter Relationship Specialty Start Date End Date Cheryle Clark APRN, RATING SPECIALIST [address] [place] [address] PCP - General Advanced Practice Nurse 03/14/20 Tana Cardenas APRN, RATING SPECIALIST #[address] [phone] PCP - General Advanced Practice Nurse 09/22/22 Emily Greene APRN, MEDICAL SURGERY NURSE [address] [place] [address] Nurse Practitioner Advanced Practice Nurse 05/14/22 documented as of this encounter
[2025-03-31 14:04] VITALS: BP 150/86; PULSE 85; RESP 16; TEMP 36.4; O2SAT 100
[2025-03-31 14:16] LABS: EDUAAPPEAR Clear; EDUABILI Negative (Negative); EDUABLOOD 1+ (Negative); EDUACOLOR1 Yellow; EDUAGLUCOSE Negative (Negative); EDUAKETONE Negative (Negative); EDUALEUKO Trace (Negative); EDUANITRATE Negative (Negative); EDUAPH 6.5; EDUAPROTEIN Negative (Negative); EDUASPGRAVITY 1.015; EDUAUROBILI 0.2
[2025-03-31 14:26] LABS: BEDSIDEPREGUCG Negative (Negative)
--- NOTE | 2025-03-31 14:30 | ED.FEMALEGU ---
HPI - Female Genitourinary General Chief complaint: Urogenital-Female Stated complaint: Urinary Problem Time Seen by Provider: 03/31/25 14:30 Source: patient Mode of arrival: ambulatory Limitations: no limitations History of Present Illness HPI Narrative: 20 yo F presents with dark colored urine, dysuria for 1 wk. No other symptoms. Last period a little over 1 month ago. Requesting test. States urine might be dark because im not drinking a lot of water. All systems reviewed and negative except as noted above. 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 Cyst removed from fallopian tube Exercise-induced asthma Surgical History Surgical History (Updated 09/23/20 @ 20:20 by QUAN Lindquist) History of salpingectomy LT History of orthopedic surgery Bilateral hips pain Family History Family History (Updated 09/23/20 @ 20:20 by QUAN Lindquist) Father Alive and well Mother Obese Social History Social History (Updated 09/23/20 @ 20:22 by QUAN Lindquist) Smoking status: Never smoker Tobacco type: cigarettes Second hand tobacco smoke exposure: No Alcohol intake: never Substance use: never Living arrangements: with family Occupation/Education: occupation Additional occupation/education comments: and 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 There is no relevant family history pertinent to the presenting complaint. Exam Narrative: GENERAL: This is a well-nourished, well-developed patient, in no apparent distress. HEAD: normocephalic, atraumatic. EYES: PERRL. Sclera clear/white. Vision is grossly intact. EARS: External ears normal NOSE: External nose normal NECK: Neck supple, non-tender without lymphadenopathy, masses or thyromegaly. CARDIOVASCULAR: Regular rate and rhythm without murmurs, gallops, or rubs. RESPIRATORY: Clear to auscultation. Breath sounds equal bilaterally. No wheezes, rales, or rhonchi. SKIN: warm, Dry, intact with no suspicious lesions or rash, good texture and turgor. NEURO: awake, alert, and oriented to person, place and time. There were no obvious focal neurologic abnormalities. EXTREMITIES: No joint tenderness, effusion, or edema noted. Course Course Level of Care: Express Care Visit Vital Signs Vital signs: Vital Signs Temperature 36.4 C 03/31/25 14:04 Pulse Rate 85 03/31/25 14:04 Respiratory Rate 16 03/31/25 14:04 Blood Pressure 150/86 H 03/31/25 14:04 Pulse Oximetry 100 03/31/25 14:04 Oxygen Delivery Room Air 03/31/25 14:04 Temperature 36.4 C 03/31/25 14:04 Pulse Rate 85 03/31/25 14:04 Respiratory Rate 16 03/31/25 14:04 Blood Pressure 150/86 H 03/31/25 14:04 Pulse Oximetry 100 03/31/25 14:04 Oxygen Delivery Room Air 03/31/25 14:04 Reviewed MDM - Female Genitourinary MDM Narrative Medical decision making narrative: urinalysis trace leukocytes, 1+ blood. Urine test negative. Patient would like to wait for urine culture prior to treating with antibiotics. Differential Diagnosis Differential diagnosis: Likely urinary tract infection Lab Data Labs: Lab Results 03/31/25 03/31/25 Range/Units 14:14 14:25 POC Urine Color Yellow POC Urine Clarity Clear POC Urine pH 6.5 POC Ur Specif Fenton 1.015 POC Urine Protein Negative (Negative) POC Ur Glucose (UA) Negative (Negative) POC Urine Ketones Negative (Negative) POC Urine Blood 1+ (Negative) POC Urine Nitrite Negative (Negative) POC Urine Bilirubin Negative (Negative) POC Urine Urobilinogen 0.2 POC U Leukocyte Esteras Trace (Negative) POC Urine HCG, Qual Negative (Negative) Discharge Plan Discharge Clinical Impression: Urine test negative, Dysuria Patient Disposition: Home Condition: Stable Instructions: Dysuria (ED) Additional Instructions: A urine culture was ordered and results will take 48-72 hours. If your urine culture is positive we will call you at that time and prescribed an antibiotic. Your test was negative today. Drink at least 64 oz water a day. Follow-up with your primary care physician as needed. Patient Language: Welsh Prescriptions: No Action levonorgestrel-ethinyl estrad [Larissia] 0.1-20 mg-mcg tablet 1 tablet PO DAILY Follow-up/Referrals: PHYSICIAN,RECREATION ATTENDANT [Primary Care Provider, Internal Medicine] Time of Disposition: 14:26
== END 2025-03-31 14:34 | disposition home or self-care (01) ==
PROVIDERS: Emergency Provider Nurse Practitioner Family
DX: R30.0 Dysuria (principal); Z32.02 Encounter for pregnancy test, result negative; J45.990 Exercise induced bronchospasm; E66.9 Obesity, unspecified; Z68.42 Body mass index [BMI] 45.0-49.9, adult; Z86.16 Personal history of COVID-19
CPT/HCPCS: 81003; 81025; 87086; 99213; G0463